=== PATIENT | female | born 1960 | race Caucasian/White ===

== ENCOUNTER → 2018-04-27 | Outpatient (CLI) | payer OTHER | LOC: COL.RAD 09:54 | DX: E21.3 Hyperparathyroidism, unspecified (principal) | CPT/HCPCS: A9500 ==

== ENCOUNTER 2018-08-21 15:26 | Day surgery (SDC) | payer BC ==
[~2018-08-21] VITALS: Ht 160 cm; Wt 105.7 kg
[2018-08-21] MEDS ORDERED: PRILOSEC 20MG20 MG PO (16:05)
[2018-08-21] MEDS ORDERED: LEVAQUIN 5500 MG/TA1 PO (16:05)
[2018-08-21] MEDS ORDERED: FLOMAX 0.40.4 MG/CAP PO (16:06)
[2018-08-21] MEDS ORDERED: SYNTHROID0.05 MG/TA PO (16:07)
[2018-08-21] MEDS ORDERED: INFANTS AQU400 IU/ML (16:07)
[2018-08-21] MEDS ORDERED: TENORMIN 5050 MG/TAB PO ×2 (16:08)
--- NOTE | 2018-08-21 16:22 | NUR ---
pt admitted ambulatory to room 321-2. assessments complete, vss, med rec complete per pt report.
[2018-08-21 16:57] VITALS: BP 142/67; PULSE 82; TEMP 97.8
[2018-08-21 19:08] VITALS: TEMP 98.2
[2018-08-21 19:39] VITALS: BP 126/49; PULSE 74
== END 2018-08-21 21:30 | disposition home or self-care (01) ==
LOC: SURG 15:26 → SDCO 15:26
DX: N20.1 Calculus of ureter (principal); Z87.442 Personal history of urinary calculi; E03.9 Hypothyroidism, unspecified; K21.9 Gastro-esophageal reflux disease without esophagitis; K58.9 Irritable bowel syndrome, unspecified; M79.7 Fibromyalgia; Z79.899 Other long term (current) drug therapy; R93.41 Abnormal radiologic findings on diagnostic imaging of renal pelvis, ureter, or bladder
CPT/HCPCS: OP; C1769; J0690; J1100; J1885; J1940; J2370; J2405; J2704; J3010; J7120; Q9967